=== PATIENT | male | born 2000 | race Caucasian/White ===

== ENCOUNTER 2020-11-30 04:37 | Emergency (ER) | payer OTHER ==
[2020-11-30] MEDS ORDERED: Ibuprofen 600 MG Tab PO ONE (04:52)
[2020-11-30] MEDS ORDERED: Acetaminophen 500 MG Tab PO ONE (04:52)
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
== END 2020-11-30 05:05 | disposition home or self-care (01) ==
LOC: MW.ED 04:37
DX: Z02.89 Encounter for other administrative examinations (principal)
CPT/HCPCS: 99283; A9270; 99282

== ENCOUNTER 2021-02-23 16:33 | Emergency (ER) | payer BC ==
[2021-02-23 17:45] LABS: BLOOD UREA NITROGEN,BUN 10 mg/dL (7.0-18.0); CARBON DIOXIDE,CO2 31.5 mmol/L (21.0-32.0); CHLORIDE,CL 101 mmol/L (98-107); GLUCOSE RANDOM 92 mg/dL (74-106); POTASSIUM,K 4.4 mmol/L (3.5-5.1); SODIUM,NA 138 mmol/L (136-148)
--- NOTE | 2021-02-23 19:38 | CR ---
INDICATION: Hemoptysis. TECHNIQUE: PA and lateral chest radiographs. COMPARISON: None available. FINDINGS: Apparent irregular nodular opacity projecting over the infrahilar right lower lung on the frontal view, though not definitely visualized on the lateral projection. No additional focal pulmonary opacity, pneumothorax, or pleural effusion. Normal cardiac and mediastinal contours. Mild scoliosis. IMPRESSION: Apparent right infrahilar irregular nodular opacity, nonspecific and potentially projectional at it is not definitely visualized on the lateral projection. Consider further evaluation with chest CT, as clinically indicated. Dictated by Thomas Lennon MD @ 02/23/2021 7:37:42 PM Dictated by: Thomas Lennon MD @ 02/23/2021 19:37:55 (Electronically Signed)
[2021-02-23] MEDS ORDERED: Iopamidol 755 MG/ML 500 ML Multipack Bottle IVPUSH STA (21:57)
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
== END 2021-02-23 22:48 | disposition home or self-care (01) ==
LOC: MW.ED 16:33
DX: R04.2 Hemoptysis (principal); F17.210 Nicotine dependence, cigarettes, uncomplicated
CPT/HCPCS: 36415; 71046; 71260; 80053; 85025; 99285; Q9967; 99283

== ENCOUNTER 2021-09-02 14:51 | Emergency (ER) | payer OTHER ==
[2021-09-02] MEDS ORDERED: Sodium Chloride 0.9% 10 ML Syringe FLUSH PRN (15:19)
[2021-09-02] MEDS ORDERED: Sodium Chloride 0.9% 2.5 ML Syringe FLUSH PRN (15:19)
[2021-09-02] MEDS ORDERED: Ketorolac 30 MG/ML SDV IVPUSH ONE (15:20)
[2021-09-02 15:45] LABS: BLOOD UREA NITROGEN,BUN 7 mg/dL (7.0-18.0); CHLORIDE,CL 100 mmol/L (98-107); GLUCOSE RANDOM 100 mg/dL (74-106); POTASSIUM,K 4.2 mmol/L (3.5-5.1); SODIUM,NA 138 mmol/L (136-148)
[2021-09-02 16:41] LABS: CORONAVIRUS COVID-19 NAA POSITIVE (NEGATIVE); INFLUENZA A NAA POSITIVE (NEGATIVE); INFLUENZA B NAA NEGATIVE (NEGATIVE)
[2021-09-02] MEDS ORDERED: Iopamidol 755 MG/ML 500 ML Multipack Bottle IVPUSH STA (17:00)
== END 2021-09-02 18:04 | disposition home or self-care (01) ==
LOC: MW.ED 14:51
DX: U07.1 COVID-19 (principal); J12.82 Pneumonia due to coronavirus disease 2019; R09.1 Pleurisy
CPT/HCPCS: 0240U; 71046; 71260; 80053; 84484; 85025; 85652; 93005; 96374; 99284; J1885; Q9967